=== PATIENT | male | born 1980 | race Hispanic/Latino ===

== ENCOUNTER 2022-11-26 23:20 | Emergency (ER) | payer SELFPAY ==
[~2022-11-26] VITALS: Ht 177.8 cm; Wt 98.6 kg
[2022-11-27] MEDS ORDERED: diphenhydrAMINE 50MG/ML VIAL IV ONE (00:50)
[2022-11-27] MEDS ORDERED: FAMOTIDINE 20MG/2ML VIAL IVP ONE (00:50)
[2022-11-27] MEDS ORDERED: NS 1,000 ML IV ONE (00:50)
[2022-11-27] MEDS ORDERED: methylPREDNISolone 125MG 2ML VIAL IV ONE (00:50)
[2022-11-27 01:48] VITALS: BP 116/65; TEMP 97.8; O2SAT 99
[2022-11-27] MEDS ORDERED: PRED20TA PO (04:12)
== END 2022-11-27 04:42 | disposition home or self-care (01) ==
LOC: M ED 23:20
DX: R21 Rash and other nonspecific skin eruption (principal); T78.40XA Allergy, unspecified, initial encounter
CPT/HCPCS: 96374; 96375; 99284; J1200; J2930; S0028